=== PATIENT | female | born 1970 | race African-American/Black ===

== ENCOUNTER 2017-11-17 18:41 | Emergency (ER) | payer OTHER, MEDICAID ==
[2017-11-17] MEDS ORDERED: cloNIDine HCL 0.1 MG TAB PO (19:45)
[2017-11-17] MEDS: ACETAMINOPHEN 500 MG CPLT PO (20:02)
== END 2017-11-17 22:09 | disposition home or self-care (01) ==
LOC: NEPD 18:41
DX: S09.90XA Unspecified injury of head, initial encounter (principal); I10 Essential (primary) hypertension; Y04.2XXA Assault by strike against or bumped into by another person, initial encounter; Y92.239 Unspecified place in hospital as the place of occurrence of the external cause; Y99.0 Civilian activity done for income or pay
CPT/HCPCS: 70486; 99283-25